=== PATIENT | male | born 1995 | race Caucasian/White ===

== ENCOUNTER 2024-05-22 07:30 | Outpatient (OUT) | payer OTHER, SELFPAY | END 2024-05-22 07:31 | disposition home or self-care (01) | LOC: SLEEP 05-23 08:00 | PROVIDERS: PCP Nurse Practitioner; Visit Provider Nurse Practitioner | DX: G47.33 Obstructive sleep apnea (adult) (pediatric) (principal) | CPT/HCPCS: 95782; 95806 ==